=== PATIENT | female | born 1950 | race Caucasian/White ===

== ENCOUNTER 2022-03-17 10:30 | Outpatient (RCR) | payer MEDICARE, BC, SELFPAY | END 2022-03-31 23:59 | LOC: DC 10:30 | PROVIDERS: PCP Internal Medicine; Visit Provider Internal Medicine | DX: E11.9 Type 2 diabetes mellitus without complications (principal); I10 Essential (primary) hypertension; E78.5 Hyperlipidemia, unspecified | CPT/HCPCS: 97802; G0108 ==

== ENCOUNTER 2022-04-15 09:59 | Outpatient (RCR) | payer MEDICARE, SELFPAY | END 2022-04-28 23:59 | LOC: DC 09:59 | PROVIDERS: PCP Internal Medicine; Visit Provider Internal Medicine | DX: E11.9 Type 2 diabetes mellitus without complications (principal); I10 Essential (primary) hypertension | CPT/HCPCS: G0108 ==

== ENCOUNTER 2022-04-29 09:49 | Outpatient (RCR) | payer MEDICARE, SELFPAY | END 2022-05-29 23:59 | LOC: DC 09:49 | PROVIDERS: PCP Internal Medicine; Visit Provider Internal Medicine | DX: E11.9 Type 2 diabetes mellitus without complications (principal) | CPT/HCPCS: 97803 ==